=== PATIENT | male | born 1955 | race Caucasian/White ===

== ENCOUNTER 2020-08-31 18:21 | Emergency (ER) | payer OTHER ==
[~2020-08-31] VITALS: Ht 177.8 cm; Wt 102.1 kg
[~2020-08-31 18:21] MED LIST: AMLO10 PO; ASPI81EC PO; CEPH500 PO; CIPR500 PO; COLE625 PO; FEXPSEER PO; LANS30EC PO; METOPROLOL PO; OMEG1CAP30 PO; TAMS.4ER PO; VYTORIN
== END 2020-08-31 19:30 | disposition home or self-care (01) ==
LOC: ER 18:21
DX: M25.552 Pain in left hip (principal); Z79.82 Long term (current) use of aspirin; Z79.899 Other long term (current) drug therapy; Z96.642 Presence of left artificial hip joint
CPT/HCPCS: 73502; 99284-25

== ENCOUNTER 2023-06-16 13:04 | Day surgery (SDC) | payer OTHER ==
[~2023-06-16] VITALS: Ht 182.9 cm; Wt 105.8 kg
[~2023-06-16 13:04] MED LIST changes: +Balanced Salt Epinephrine Irrigation Solution 500 mL IR SCH; +Lidocaine HCl/Pf 1% 5 ML VIAL XX SCH; +METO50ER PO; -METOPROLOL PO; +Moxifloxacin HCL 0.5 MG/0.1 ML 0.4MLSYR LEFTEYE SCH; +NS 500 ML IV ONE; +PHENYLEPHRINE\\TROPICAMIDE\\TETRACAINE OPHTHALMIC DILATING SOLN LEFTEYE PRN; +Povidone-Iodine 450 DROP/30 ML Solution LEFTEYE SCH; +Povidone-Iodine 450 DROP/30 ML Solution ONE; +Triamcinolone Inj Susp 40 MG / ML 1ML Vial INJ SCH; +Triamcinolone Inj Susp 40 MG / ML 1ML Vial ONE
[2023-06-16] MEDS ORDERED: NS 500 ML IV ONE (13:32)
[2023-06-16] MEDS ORDERED: Midazolam HCl 1MG / ML 2ML Vial ONE (13:32)
[2023-06-16] MEDS ORDERED: PANT20 PO (13:37)
[2023-06-16] MEDS ORDERED: FLUTICASONE-SA1 EAC1 INH (13:37)
[2023-06-16] MEDS ORDERED: FINA5 PO (13:38)
[2023-06-16] MEDS ORDERED: ZOCOR20 MG PO (13:38)
[2023-06-16] MEDS ORDERED: EZET10 PO (13:39)
[2023-06-16] MEDS ORDERED: NAPR220 PO (13:39)
[2023-06-16] MEDS ORDERED: FentaNYL Citrate 50 MCG/ML 2 ML Injection ONE (14:21)
[2023-06-16] MEDS ORDERED: Tetracaine HCl 0.5% Opth Soln 15 ml LEFTEYE ONE (14:22)
[2023-06-16] MEDS ORDERED: Glycopyrrolate 0.2 MG/ML 5ML VIAL ONE (14:34)
[2023-06-16 15:22] VITALS: BP 130/96
== END 2023-06-16 15:18 | disposition home or self-care (01) ==
LOC: ORSCSDS 13:04
PROVIDERS: Ophthalmology
PROC: 08RK3JZ Replacement of Left Lens with Synthetic Substitute, Percutaneous Approach (ICD-10-PCS; principal; 2023-06-16 14:30)
PROC: 08933ZZ Drainage of Left Anterior Chamber, Percutaneous Approach (ICD-10-PCS; principal; 2023-06-16 14:30)
DX: H25.13 Age-related nuclear cataract, bilateral (principal); H40.1121 Primary open-angle glaucoma, left eye, mild stage; H40.1110 Primary open-angle glaucoma, right eye, stage unspecified; I10 Essential (primary) hypertension; E78.00 Pure hypercholesterolemia, unspecified; Z79.899 Other long term (current) drug therapy
CPT/HCPCS: J2250; J3010; J3301; J7040; V2632

== ENCOUNTER 2023-06-24 13:06 | Day surgery (SDC) | payer OTHER ==
[~2023-06-24] VITALS: Ht 182.9 cm; Wt 105.5 kg
[~2023-06-24 13:06] MED LIST changes: +Dexamethasone Sod Phos 10 MG/ML 1ML VIAL ONE; +EZET10 PO; +FINA5 PO; +FLUTICASONE-SA1 EAC1 INH; -Moxifloxacin HCL 0.5 MG/0.1 ML 0.4MLSYR LEFTEYE SCH; +Moxifloxacin HCL 0.5 MG/0.1 ML 0.4MLSYR RIGHTEYE SCH; +NAPR220 PO; +PANT20 PO; -PHENYLEPHRINE\\TROPICAMIDE\\TETRACAINE OPHTHALMIC DILATING SOLN LEFTEYE PRN; +PHENYLEPHRINE\\TROPICAMIDE\\TETRACAINE OPHTHALMIC DILATING SOLN RIGHTEYE PRN; -Povidone-Iodine 450 DROP/30 ML Solution LEFTEYE SCH; +Povidone-Iodine 450 DROP/30 ML Solution RIGHTEYE SCH; +ZOCOR20 MG PO
[2023-06-24] MEDS ORDERED: FentaNYL Citrate 50 MCG/ML 2 ML Injection ONE (13:57)
[2023-06-24] MEDS ORDERED: Ondansetron HCl 2 MG / ML 2ML Vial ONE (13:57)
[2023-06-24] MEDS ORDERED: Midazolam HCl 1MG / ML 2ML Vial ONE (13:57)
[2023-06-24] MEDS ORDERED: LATANOPROST (14:22)
[2023-06-24] MEDS ORDERED: NS 500 ML IV ONE (14:30)
--- NOTE | 2023-06-24 14:31 | NUR ---
06/24/23 1431 Karin Gannon 1403 T[address] 1401
[2023-06-24] MEDS ORDERED: Tetracaine HCl 0.5% Opth Soln 15 ml RIGHTEYE ONE (14:52)
[2023-06-24] MEDS ORDERED: Glycopyrrolate 0.2 MG/ML 5ML VIAL ONE (14:58)
[2023-06-24 15:57] VITALS: BP 126/92
== END 2023-06-24 15:40 | disposition home or self-care (01) ==
LOC: ORSCSDS 13:06
PROVIDERS: Ophthalmology
PROC: 08RJ3JZ Replacement of Right Lens with Synthetic Substitute, Percutaneous Approach (ICD-10-PCS; principal; 2023-06-24 14:30)
DX: H25.11 Age-related nuclear cataract, right eye (principal); Z96.1 Presence of intraocular lens; I10 Essential (primary) hypertension; I25.10 Atherosclerotic heart disease of native coronary artery without angina pectoris; G47.33 Obstructive sleep apnea (adult) (pediatric); K21.9 Gastro-esophageal reflux disease without esophagitis; I25.2 Old myocardial infarction; Z79.899 Other long term (current) drug therapy
CPT/HCPCS: J1100; J2250; J2405; J3010; J3301; J7040; V2632

== ENCOUNTER 2024-02-05 12:14 | Emergency (ER) | payer OTHER ==
[~2024-02-05] VITALS: Ht 167.6 cm; Wt 90.7 kg
[~2024-02-05 12:14] MED LIST changes: -Balanced Salt Epinephrine Irrigation Solution 500 mL IR SCH; -Dexamethasone Sod Phos 10 MG/ML 1ML VIAL ONE; +LATANOPROST; -Lidocaine HCl/Pf 1% 5 ML VIAL XX SCH; -Moxifloxacin HCL 0.5 MG/0.1 ML 0.4MLSYR RIGHTEYE SCH; -NS 500 ML IV ONE; -PHENYLEPHRINE\\TROPICAMIDE\\TETRACAINE OPHTHALMIC DILATING SOLN RIGHTEYE PRN; -Povidone-Iodine 450 DROP/30 ML Solution ONE; -Povidone-Iodine 450 DROP/30 ML Solution RIGHTEYE SCH; -Triamcinolone Inj Susp 40 MG / ML 1ML Vial INJ SCH; -Triamcinolone Inj Susp 40 MG / ML 1ML Vial ONE
[2024-02-05 13:20] LABS: BASOPHILS PERCENT AUTO 1 % (0-2); EOSINOPHILS ABSOLUTE AUTO 0.32 K/mm3 (0.00-0.68); EOSINOPHILS PERCENT AUTO 4 % (0-6); Hematocrit 49.8 % (37.0-53.0); Hemoglobin 17.5 g/dL (13.5-17.5); IMMATURE GRAN ABSOLUTE AUTO 0.08 K/mm3 (0.00-0.10); IMMATURE GRAN PERCENT AUTO 1 % (0-1); LYMPHOCYTES ABSOLUTE AUTO 1.42 K/mm3 (0.84-5.20); LYMPHOCYTES PERCENT AUTO 18 % (21-46); MONOCYTES ABSOLUTE AUTO 0.61 K/mm3 (0.16-1.47); MONOCYTES PERCENT AUTO 8 % (4-13); Mean Corpuscular HGB 31.4 pg (26.0-34.0); Mean Corpuscular HGB Conc 35.1 g/dL (31.5-36.5); Mean Corpuscular Volume 89 fL (80-100); Mean Platelet Volume 9.5 fL (9.1-12.4); NEUTROPHILS ABSOLUTE AUTO 5.28 K/mm3 (1.96-9.15); NEUTROPHILS PERCENT AUTO 68 % (41-73); Platelet Count 280 K/mm3 (150-400); RDW Coefficient Variation 12.2 % (11.7-14.2); RDW Standard Deviation 40.3 fL (35.1-46.3); Red Blood Cell Count 5.58 M/mm3 (4.30-5.90); White Blood Cell Count 7.81 K/mm3 (4.00-11.30)
[2024-02-05 13:37] LABS: Albumin/Globulin Ratio 1.1 (0.8-1.8); Bilirubin, Total 0.4 mg/dL (0.1-1.0); Bun/Creatinine Ratio 24.4 (12.0-20.0); Calcium, Blood 8.8 mg/dL (8.5-10.1); Creatinine, Blood 0.62 mg/dL (0.60-1.20); Globulin, Blood 3.7 g/dL (2.2-4.0); Total Protein, Blood 7.7 g/dL (6.4-8.2)
[2024-02-05 15:45] VITALS: BP 134/87
== END 2024-02-05 15:46 | disposition home or self-care (01) ==
LOC: ER 12:14
PROVIDERS: Student in an Organized Health Care Education/Training Program
DX: R55 Syncope and collapse (principal); R11.0 Nausea; I10 Essential (primary) hypertension; I25.10 Atherosclerotic heart disease of native coronary artery without angina pectoris; I25.2 Old myocardial infarction; E78.5 Hyperlipidemia, unspecified; G47.30 Sleep apnea, unspecified; Z87.891 Personal history of nicotine dependence; Z88.8 Allergy status to other drugs, medicaments and biological substances; Z79.51 Long term (current) use of inhaled steroids; Z79.82 Long term (current) use of aspirin; Z79.899 Other long term (current) drug therapy
CPT/HCPCS: 71046; 80053; 83690; 84484; 85025; 93005; 93010; 99284-25